=== PATIENT | male | born 1970 | race Caucasian/White ===

== ENCOUNTER 2016-06-08 20:24 | Emergency (ER) | payer BC ==
[~2016-06-08] VITALS: Ht 188 cm; Wt 114.2 kg
[~2016-06-08 20:24] MED LIST: OMEP20TA2 PO
--- OUTSIDE RECORDS SUMMARY | 2016-06-08 20:28 | XMS REPORT | Continuity of Care Document ---
Author Author [facility] Organization [facility] Address Unknown Phone Unavailable Support Name Relationship Address Phone CEASAR WOODY MD Caregiver [address] [place] [id number] Unavailable JUNE, MEHUL Ridley DO Caregiver [address] [place] [address] Unavailable ANDREWDAVID GILLIAMI Next Of Kin [address] [place] [address] Insurance Providers Guarantor AndrewYelitza gilliam Address [address] [place] [id number] Email NO TO PORTAL Payer [facility] Policy Number [id number] Subscriber's Name Yelitza Morales Relationship 18 Self Group Number [id number] Chief Complaint and Reason for Visit Chief Complaint Head Injury Reason for Visit Head injury Problems Past Problems Medical Problem Onset Date Head injury Unknown Medications Current Home Medications Medication Dose Units Route Directions Days Qty Instructions Start Date Omeprazole Magnesium (Prilosec Otc) 20 Mg Tablet. 1 Tab Oral Bedtime for Acid Reflux 10/16/15 Social History Social History Problem Response Recorded Date/Time Onset Date Status Hx Substance Use No 10/16/2015 11:56am Not Applicable Not Applicable Hx Alcohol Use Y OCC 10/16/2015 11:56am Not Applicable Not Applicable Query Response Start Date Stop Date Smoking Status Never smoker Hospital Discharge Instructions No hospital discharge instructions. Plan of Care Discharge Date 10/16/15 12:35pm Disposition 01 DISCHARGED HOME, SELF-CARE Condition at Discharge Stable Instructions/Education Provided DI for Closed Head Injury Prescriptions See Medication Section Referrals CEASAR WOODY MD Address: [place] [address] Additional Instructions/Education Please monitor for increased nausea/vomiting , severe headache, or altered mental status over the next 48 hours. You may take some Ibuprofen and/or Tylenol as needed for headache. If you have any issues/concerns then please return to ER for reevaluation. Care Plan and Goals Physician Care Plan Problem:Head Injury Goal: Follow up with primary care provider Instructions: Take medications and follow care plan as discussed/written Functional Status No functional status results. Allergies, Adverse Reactions, Alerts No known allergies. Immunizations Query Response on File Recorded Date/Time Influenza Vaccine Hx NONE 10/16/15 11:56am Vital Signs Acute Vital Signs Vital Response Date/Time Temperature (Fahrenheit) 97.7 deg F (96.8 - 99.1) 10/16/2015 12:35pm Temperature (Calculated Celsius) 36.81747 degrees C (36.0 - 37.3) 10/16/2015 12:35pm Pulse Rate (adult) 97 bpm (60 - 100) 10/16/2015 12:35pm Respiratory Rate 16 breaths/min (10 - 20) 10/16/2015 12:35pm O2 Sat by Pulse Oximetry 99 % (90 - 100) 10/16/2015 12:35pm Blood Pressure 143/93 mm Hg 10/16/2015 12:35pm Height (Feet) 6 feet 10/16/2015 11:56am Height (Inches) 2.00 inches 10/16/2015 11:56am Weight (Kilograms) 114.900 kg 10/16/2015 11:56am Body Mass Index (BMI) 32.0 10/16/2015 11:56am Results No known relevant diagnostic tests, laboratory data and/or discharge summary. Procedures No known history of procedures. Encounters Encounter Location Arrival/Admit Date Discharge/Depart Date Attending Provider Departed Emergency Room [facility] 10/16/15 11:54am 10/16/15 12: 35pm MEHUL WOLF DO Recent Diagnosis
[2016-06-08 20:31] VITALS: Ht 188 cm; Wt 114.2 kg
[2016-06-08] MEDS ORDERED: MULT-933 PO (20:44)
[2016-06-08] MEDS ORDERED: FAMO20TA8 PO (20:44)
[2016-06-08] MEDS ORDERED: ALPR0.5T8 PO (20:44)
[2016-06-08] MEDS ORDERED: IBUP-1724 PO (20:44)
[2016-06-08] MEDS ORDERED: NORMAL SALINE 1,000 ML IV ONE (21:15)
--- NOTE | 2016-06-08 21:19 | ERPDOC ---
Departure Disposition Decision Date: Jun 08, 2016 Disposition Decision Time: 23:31 Disposition: 01 DISCHARGED HOME, SELF-CARE Impression Impression Impression: Primary Impression: Palpitations Severity: Mild Condition: Improved Seen By: Physician only Referrals: CEASAR WOODY MD (Family) 2 Days Patient Instructions: Palpitations (ED) Problems/Meds/Labs Reviewed?: Yes Medications reviewed and manag: Yes Follow up care ordered?: Yes Mental Status: Alert, Oriented HPI - General Medical General Chief Complaint: Cardiac Complaint Stated Complaint: FAST HEART RATE Time Seen by Provider: 20:52 Source: patient Exam Limitations: no limitations HPI - General Medical Initial Comments 46-year-old male presents to the emergency department with a chief complaint of palpitations. Patient states that around 5 PM he was carrying boxes and noted to feel his heart beating quickly and hard. Patient denies any pain or discomfort. Patient does not note any exacerbating or remitting factors. There are no other complaints or associated symptoms. He was at home when the symptoms occurred. Patient states his symptoms have since resolved. Patient states he has had similar symptoms in the past when he experiences bouts of anxiety. Occurred At: home Onset: Gradual Allergies: Coded Allergies: No Known Allergies (Unverified , 06/08/16) Past History Past Medical History GI: GERD Psychological: anxiety Surgical History Denies Surgeries Family History Family History: Negative Social History Smoking Status: Never smoker Substance Use Type: does not use Alcohol Intake: none Review of Systems Constitutional Constitutional: DENIES: chills, fever Eyes General: DENIES: erythema, exudate Lids/Accessories: DENIES: erythema, swelling Vision: DENIES: acuity, blurring ENMT Ears: DENIES: drainage, erythema Hearing: DENIES: hearing loss Balance: DENIES: ataxia, falling to one side Sinuses: DENIES: congestion, pain Nose: DENIES: nosebleeds, pain Mouth/Throat: DENIES: painful swallowing, sore throat Teeth: DENIES: pain Jaw: DENIES: pain Cardiovascular Cardiac: DENIES: chest pain, dyspnea on exertion Rhythm/Rate: palpitations, DENIES: irregular beat Vascular: DENIES: pedal edema, unilateral swelling Pulmonary Respiratory: DENIES: cough, dyspnea, sputum GI Upper Abdomen: DENIES: nausea, pain, vomiting Lower Abdomen: DENIES: diarrhea, pain General: DENIES: dysuria, frequency Male: DENIES: frequency, hesitancy Musculoskeletal General: DENIES: joint pain, tenderness Integumentary Skin: DENIES: itching, rash Neurological General: DENIES: headache, numbness, weakness Psychiatric Psychiatric: DENIES: depression, emotional instability, suicidal ideation/ attempt Endocrine Endocrine: DENIES: polydipsia, polyphagia Hematologic/Lymphatic Hematologic/Lymphatic: DENIES: frequent nosebleeds, lymphadenopathy Allergic/Immunological Allergic/Immunoligical: DENIES: allergic reactions, hives Physical Exam General General Nourishment: well nourished, well developed, appears stated age, no acute distress, adult General Body Habitus: well groomed Vitals and Pain First Documented Vital Signs Date Time Temp Pulse Resp B/P Pulse Ox O2 Delivery O2 Flow Rate FiO2 06/08/16 20:31 98.2 116 15 167/100 96 Room Air Weight: Kilograms: Height (feet): 6 Height (inches): 2.00 Triage Pain Scale: RN VS reviewed by Provider: Yes Normal Exams: Head: Normocephalic w/o trauma Eyes: Pupils are PERRLA w/ EOMI, No scleral icterus, irritation, or foreign bodies noted ENMT: No facial trauma, nasal exudates, pharyngeal erythema, or exudates are noted Dental: No fractured, loose, or missing teeth noted Neck: Full range of motion, without adenopathy, JVD, bruits or thyromegaly Chest/Resp: Clear all gasca, with good airflow, and symmetry bilaterally CV: Regular rate and rhythm, without murmur or gallop, Pulses 2+ all extremities, capillary refill, <2 seconds all ext., no pedal edema noted Abdomen: Bowel sounds positive, soft, non-tender, non-distended, no hepatosplenomegaly, masses or bruits noted Lymphatic: No lymphadenopathy, or lymphedema noted Musculoskeletal: No tenderness, or deformity noted, good range of motion, all extremities Integumentary: No rashes, hives, or bruising noted, hair and nails, without abnormality Neurologic: Patient is alert, and oriented, cranial nerves, motor/sensory/ cerebellar, exams w/o gross deficits, to observation Psychiatric: Patient exhibits, appropriate attention, emotion and affect Differential Diagnoses Considering: Acute CO, Medication Effect, Metabolic, Other (Palpitations) Progress Results/Orders Orders Procedure Category Date Status Time Cbc W/Auto LAB 06/08/16 Complete Diff-Reflex Manual Cmp - Comprehensive LAB 06/08/16 Complete Metabolic Troponin I W LAB 06/08/16 Complete Hemolysis Index Chest 1 View RAD 06/08/16 Taken 21:03 Normal Saline (Normal PHA 06/08/16 Complete Saline Iv) 21:15 EKG EKG 06/08/16 Taken Cta Pulmonary Emboli CT 06/08/16 Taken 21:46 Iohexol (Omnipaque) PHA 06/08/16 Complete 21:55 Normal Saline (Ns) PHA 06/08/16 Complete 21:55 Saline Flush (Iv PHA 06/08/16 Complete Flush) 21:55 Iohexol (Omnipaque) PHA 06/08/16 Complete 22:17 Normal Saline (Ns) PHA 06/08/16 Complete 22:17 Saline Flush (Iv PHA 06/08/16 Complete Flush) 22:18 D-Dimer LAB 06/08/16 Complete 22:49 Potassium Chloride PHA 06/08/16 Complete (Kdur) 23:45 Lab Results Laboratory Tests Test 06/08/16 21:19 06/08/16 22:56 White Blood Count 10.6T/MM3 Red Blood Count 6.13M/MM3 Hemoglobin 16.0GM/DL Hematocrit 48.6% Mean Corpuscular Volume 79.3UM3 Mean Corpuscular Hemoglobin 26.1UUG Mean Corpuscular Hemoglobin Concent 32.9GM/DL RDW Standard Deviation 43.3FL Platelet Count 295T/MM3 Mean Platelet Volume 9.2UM3 Immature Granulocyte % (Auto) 0.1% Neutrophils (%) (Auto) 61.5% Lymphocytes (%) (Auto) 29.3% Monocytes (%) (Auto) 8.1% Eosinophils (%) (Auto) 0.9% Basophils (%) (Auto) 0.1% Absolute Immature Granulocyte (auto 0.01T/MM3 Absolute Neutrophils (auto) 6.5T/MM3 Absolute Lymphocytes (auto) 3.1T/MM3 Absolute Monocytes (auto) 0.9T/MM3 Absolute Eosinophils (auto) 0.1T/MM3 Absolute Basophils (auto) 0.0T/MM3 Turbidity < 20 Sodium Level 147MEQ/L Potassium Level 3.5MEQ/L Chloride Level 102MEQ/L Carbon Dioxide Level 27MEQ/L Anion Gap 18MEQ/L Blood Urea Nitrogen 19.0MG/DL Creatinine 1.2MG/DL Glomerular Filtration Rate Calc 65 BUN/Creatinine Ratio 16RATIO Glucose Level 117MG/DL Calculated Osmolality 285MOSM/KG Calcium Level 9.5MG/DL Total Bilirubin 0.60MG/DL Icterus Index < 2 Aspartate Amino Transf (AST/SGOT) 38U/L Alanine Aminotransferase (ALT/SGPT) 45U/L Alkaline Phosphatase 90U/L Troponin I < 0.012ng/ml Total Protein 8.6G/DL Albumin 4.7G/DL Globulin 3.9G/DL Albumin/Globulin Ratio 1.2RATIO Chemistry Specimen Hemolysis < 15 D-Dimer < 150NG/ML Medications Current ED Medications Sodium Chloride (Normal Saline IV) 1,000 ml @ 999 mls/hr Q1H1M ONCE IV Last administered on 06/08/16t 21:20; Start 06/08/16 at 21:15; Stop 06/08/16 at 22:15 ; Status DC Iohexol 1 bottle 1 bottle STK-MED ONCE .ROUTE ; Start 06/08/16 at 21:55; Stop at 21:56; Status DC Sodium Chloride (NS) 100 ml @ As Directed STK-MED ONCE .ROUTE ; Start 06/08/16 at 21:55; Stop 06/08/16 at 21:56; Status DC Sodium Chloride (Iv Flush) 10 ml STK-MED ONCE .ROUTE ; Start 06/08/16 at 21:55; Stop 06/08/16 at 21:56; Status DC Iohexol 1 bottle 1 bottle STK-MED ONCE .ROUTE ; Start 06/08/16 at 22:17; Stop at 22:18; Status DC Sodium Chloride (NS) 100 ml @ As Directed STK-MED ONCE .ROUTE ; Start 06/08/16 at 22:17; Stop 06/08/16 at 22:18; Status DC Sodium Chloride (Iv Flush) 10 ml STK-MED ONCE .ROUTE ; Start 06/08/16 at 22:18; Stop 06/08/16 at 22:19; Status DC Potassium Chloride (Kdur) 40 meq O ONCE PO Last administered on 06/08/16 23: 37; Start 06/08/16 at 23:45; Stop 06/08/16 at 23:46; Status DC Progress Progress Labs/imaging were discussed in detail with the patient and questions are answered. Patient is given IV hydration. Patient is feeling markedly improved at the end of his emergency department stay. Patient's EKG does not show any acute changes. Patient's troponin is negative. His d-dimer is negative. Patient is discharged home in improved condition. He is to follow up as instructed. Patient is to return to the emergency department if his condition worsens or changes in any manner. Patient is in agreement with the current plan of management. Patient is to follow up as instructed. EKG EKG : Rate: >100 Rhythm: sinus [place]: normal QRS: normal Intervals: normal ST/T: normal Interpreted by: signing physician Xray Xray : Xray: CXR Portable Interpretation: Normal, Interpreted by Fl CT CT : CT: Chest IV contrast Interpretation: Normal, Faxed Report RAMILA PETERS DO Jun 08, 2016 21:19
[2016-06-08 21:40] LABS: ALBUMIN 4.7 G/DL (3.5-5.0); ALBUMIN/GLOBULIN RATIO 1.2 RATIO (1.1-2.2); ALKALINE PHOSPHATASE 90 U/L (38-126); ALT (SGPT) 45 U/L (21-72); ANION GAP 18 MEQ/L (5-15); AST (SGOT) 38 U/L (17-59); BUN/CREATININE RATIO 16 RATIO (6-26); CALCIUM 9.5 MG/DL (8.4-10.2); CHLORIDE 102 MEQ/L (98-107); CO2 - CARBON DIOXIDE 27 MEQ/L (22-30); CREATININE 1.2 MG/DL (0.8-1.5); GLOMERULAR FILTRATION RATE 65; GLUCOSE 117 MG/DL (75-110); POTASSIUM 3.5 MEQ/L (3.6-5); SODIUM 147 MEQ/L (134-144); TOTAL PROTEIN 8.6 G/DL (6.3-8.2)
[2016-06-08 21:48] LABS: BASOPHILS % (AUTO) 0.1 % (0-2); EOSINOPHILS # (AUTO) 0.1 T/MM3 (0-0.5); EOSINOPHILS % (AUTO) 0.9 % (0-4); HCT - HEMATOCRIT 48.6 % (41-53); IMMATURE GRANULOCYTE # (AUTO) 0.01 T/MM3 (0.00-0.03); IMMATURE GRANULOCYTE % (AUTO) 0.1 % (0.0-0.5); LYMPHOCYTES # (AUTO) 3.1 T/MM3 (1-4.8); LYMPHOCYTES % (AUTO) 29.3 % (23-45); MEAN CORPUSCULAR HGB 26.1 UUG (26-34); MEAN CORPUSCULAR HGB CONC(MCHC 32.9 GM/DL (31-37); MEAN CORPUSCULAR VOLUME 79.3 UM3 (80-100); MEAN PLATELET VOLUME 9.2 UM3 (9.4-12.4); MONOCYTES # (AUTO) 0.9 T/MM3 (0-0.8); MONOCYTES % (AUTO) 8.1 % (0-9.0); NEUTROPHILS #(AUTO)-ABSOLUTE 6.5 T/MM3 (1.8-7.7); NEUTROPHILS % (AUTO) 61.5 % (33-66); RED BLOOD COUNT 6.13 M/MM3 (4.50-5.90); WBC - WHITE BLOOD COUNT 10.6 T/MM3 (4.5-11.0)
[2016-06-08] MEDS ORDERED: NORMAL SALINE 100 ML ONE ×2 (21:55→22:17)
[2016-06-08] MEDS ORDERED: SALINE FLUSH 10ml SYRINGE ONE ×2 (21:55→22:18)
[2016-06-08] MEDS ORDERED: IOHEXOL 350 MG/ML 75ml INJECTION ONE ×2 (21:55→22:17)
--- NOTE | 2016-06-08 22:30 | NUR ---
CT RETURNS FROM CT VIA CART
[2016-06-08 23:43] VITALS: BP 130/82; PULSE 81; RESP 29; TEMP 98.2; O2SAT 94
[2016-06-08] MEDS ORDERED: POTASSIUM CHLORIDE 20 MEQ TABLET PO ONE (23:45)
--- NOTE | 2016-06-09 08:23 | DI ---
Indication: ITS.REASON: palpitations PROCEDURE: CTA PULMONARY EMBOLI: Encounter: Initial Comparison: None Technique: Axial CT pulmonary angiographic phase images were performed through the chest after the administration of intravenous contrast. Coronal and Sagittal MIP reconstructed images were created and reviewed. Automated Exposure Control and Iterative Reconstruction dose reducing techniques were utilized. Contrast: Omnipaque 350 130 mL Findings: Pulmonary arteries: Initial contrast bolus was nondiagnostic for pulmonary embolus so a repeat exam was performed. Second contrast bolus is also suboptimal and essentially nondiagnostic for pulmonary embolus. No obvious large or saddle embolus seen. Other findings: Minimal right basilar atelectasis. The lungs are otherwise clear. No pleural effusion, pneumonia or pneumothorax. The central airways are patent. No axillary or mediastinal adenopathy. Heart size is normal. No pericardial effusion. The upper abdomen shows no acute findings. Impression: 1. Nondiagnostic exam for pulmonary embolus. VQ scan could be performed for further evaluation. 2. No pneumonia or acute cardiothoracic disease process seen. There is a preliminary report by [facility]. .
--- NOTE | 2016-06-09 08:32 | DI ---
Indication: ITS.REASON: palpitations PROCEDURE: CHEST 1 VIEW: Encounter: Initial Comparison: None FINDINGS: The lungs are clear. There is no abnormal airspace opacity, pleural effusion or pneumothorax identified. The heart size, pulmonary vasculature and mediastinum are within normal limits. No significant skeletal abnormality is seen. IMPRESSION: No acute cardiopulmonary abnormality. .
== END 2016-06-08 23:43 | disposition home or self-care (01) ==
LOC: ED 20:24
DX: R00.2 Palpitations (principal); R00.0 Tachycardia, unspecified
CPT/HCPCS: 36415; 71010; 71275; 80053; 84484; 85025; 85379; 93005; 96360; 99284; J7030; J7050; Q9967